=== PATIENT | male | born 1965 | race Caucasian/White ===

== ENCOUNTER → 2018-02-15 | Outpatient (CLI) | payer MEDICARE ==
[~2018-02-15] MED LIST: 'PARAFON FORTE500 M1 PO; AMBIEN10 MG PO; ANTIBIOTIC O500 U/GM TP; ASPIR LOW81 MG PO; AUGMENTIN 875-875 MG PO; BACTRIM DS 8001 TA1 PO; CEPHALEXIN500 M1 PO; CLARITIN10 MG PO; CYCLOBENZAPRINE10 MG PO; DARVOCET N 1001 TAB PO; DAYPRO600 M1 PO; FLONASE ALLERG9.9 ML NAS; HYDROCODONE BIT1 T11 PO; HYDROCODONE BIT1 T20 PO; K-TAB10 MEQ PO; KEFLEX250 MG PO; KEFLEX500 MG PO; LISINOPR; LISINOPRIL2.5 MG PO; LISINOPRIL5 MG PO; METOP; METOPROLOL SUCC50 M1 PO; METOPROLOL TART50 M1 PO; MOTRIN800 MG PO; Motrin,Rufen800 MG PO; NAPROSYN500 MG PO; NORCO 325 MG-51 TAB PO; NORCO 325 MG-7.1 TAB PO; NORCO 5-325 TA1 EACH PO; PARAFON FORTE500 MG PO; PERCOCET 325 MG1 TA2 PO; PREDNISONE10 MG PO; ROBAXIN750 MG PO; ROBITUSSIN AC 110 ML PO; SIMVASTATIN20 MG PO; TOPAMAX200 MG PO; ULTRAM50 MG PO; VALIUM10 MG; VALIUM10 MG PO; VICODIN 5/500 505 MG PO; VICODIN 500 MG-1 TAB; VICODIN 500 MG-1 TAB PO; WELLBUTRIN XL300 MG PO; XANAX1 MG PO; ZANTAC 150150 MG PO; ZOLPIDEM TART12.5 MG PO
== END | disposition home or self-care (01) ==
LOC: RAD 11:07
DX: M16.12 Unilateral primary osteoarthritis, left hip (principal); R23.3 Spontaneous ecchymoses

== ENCOUNTER → 2018-04-02 | Outpatient (CLI) | payer MEDICARE | END | disposition home or self-care (01) | LOC: ORTHO 00:22 | DX: M25.552 Pain in left hip (principal) ==

== ENCOUNTER 2018-06-15 12:18 | Emergency (ER) | payer MEDICARE ==
[~2018-06-15] VITALS: Ht 180.3 cm; Wt 113.4 kg
[2018-06-15] MEDS ORDERED: ZITHROMAX250 MG PO (13:09)
[2018-06-15] MEDS ORDERED: FLONASE ALLERG9.9 ML NAS (13:09)
== END 2018-06-15 14:13 | disposition home or self-care (01) ==
LOC: ED 12:18
DX: H66.92 Otitis media, unspecified, left ear (principal); S69.91XA Unspecified injury of right wrist, hand and finger(s), initial encounter; F17.200 Nicotine dependence, unspecified, uncomplicated; Z79.82 Long term (current) use of aspirin; Z79.899 Other long term (current) drug therapy; Y04.2XXA Assault by strike against or bumped into by another person, initial encounter; Y93.89 Activity, other specified; Y92.89 Other specified places as the place of occurrence of the external cause; Y99.8 Other external cause status

== ENCOUNTER 2018-07-23 10:44 | Emergency (ER) | payer MEDICARE ==
[~2018-07-23] VITALS: Ht 180.3 cm; Wt 113.4 kg
[~2018-07-23 10:44] MED LIST changes: +ZITHROMAX250 MG PO
[2018-07-23] MEDS ORDERED: Tobrex Ophth S2.5 ML OPH (11:02)
[2018-07-23] MEDS ORDERED: ACULAR 0.5%3 ML OPH (11:02)
== END 2018-07-23 12:47 | disposition home or self-care (01) ==
LOC: ED 10:44
DX: S05.02XA Injury of conjunctiva and corneal abrasion without foreign body, left eye, initial encounter (principal); Z79.899 Other long term (current) drug therapy; Z79.82 Long term (current) use of aspirin; W22.8XXA Striking against or struck by other objects, initial encounter; Y93.89 Activity, other specified; Y92.89 Other specified places as the place of occurrence of the external cause; Y99.8 Other external cause status

== ENCOUNTER 2018-08-27 13:25 | Emergency (ER) | payer MEDICARE ==
[~2018-08-27] VITALS: Ht 177.8 cm; Wt 112.5 kg
[~2018-08-27 13:25] MED LIST changes: +ACULAR 0.5%3 ML OPH; +Tobrex Ophth S2.5 ML OPH
[2018-08-27] MEDS ORDERED: ROBAXIN500 M1 PO (15:33)
[2018-08-27] MEDS ORDERED: IBUPROFEN600 MG PO (15:33)
[2018-08-27] MEDS ORDERED: NORCO 5-325 TA1 EACH PO (15:33)
== END 2018-08-27 16:02 | disposition home or self-care (01) ==
LOC: ED 13:25
DX: G89.29 Other chronic pain (principal); M54.2 Cervicalgia; Z79.899 Other long term (current) drug therapy; Z79.82 Long term (current) use of aspirin

== ENCOUNTER → 2019-11-19 | Outpatient (CLI) | payer MEDICARE ==
[~2019-11-19] MED LIST changes: +IBUPROFEN600 MG PO; +ROBAXIN500 M1 PO
[2019-11-19 08:18] LABS: BUN 17 mg/dl (7-24); CHLORIDE 108 mmol/L (98-107); CHOLESTEROL 178 mg/dL (<200); CREATININE 1.05 mg/dL (0.70-1.30); HDL CHOLESTEROL 28 mg/dl (40-60); LDL CHOLESTEROL 125 mg/dL (9-159); POTASSIUM 4.2 mmol/L (3.5-5.1); SODIUM 138 mmol/L (136-145); TRIGLYCERIDES 126 mg/dl (<150); VLDL CHOLESTEROL 25 mg/dL (6-40)
== END | disposition home or self-care (01) ==
LOC: LAB 07:42
PROVIDERS: Registered Nurse Flight
DX: Z13.220 Encounter for screening for lipoid disorders (principal); E78.00 Pure hypercholesterolemia, unspecified; R73.01 Impaired fasting glucose

== ENCOUNTER → 2019-12-14 | Outpatient (CLI) | payer OTHER ==
[~2019-12-14] MED LIST changes: +DULOXETINE HCL30 MG PO; +DULOXETINE HCL60 MG PO; +LISINOPRIL-HCT1 EACH PO; +OMEPRAZOLE MAGN20 MG PO; +TRULICITY1.5 MG/0.5 SC
== END | disposition home or self-care (01) ==
LOC: MRI 11-02 10:00
DX: M25.552 Pain in left hip (principal); M54.5 Low back pain

== ENCOUNTER 2019-12-27 17:40 | Emergency (ER) | payer OTHER ==
[~2019-12-27] VITALS: Ht 180.3 cm; Wt 117.9 kg
[~2019-12-27 17:40] MED LIST changes: -DULOXETINE HCL30 MG PO; -DULOXETINE HCL60 MG PO; -LISINOPRIL-HCT1 EACH PO; -OMEPRAZOLE MAGN20 MG PO; -TRULICITY1.5 MG/0.5 SC
== END 2019-12-27 20:44 | disposition home or self-care (01) ==
LOC: ED 17:40
DX: S60.221A Contusion of right hand, initial encounter (principal); I10 Essential (primary) hypertension; I25.10 Atherosclerotic heart disease of native coronary artery without angina pectoris; M19.90 Unspecified osteoarthritis, unspecified site; G89.29 Other chronic pain; F17.200 Nicotine dependence, unspecified, uncomplicated; Z79.899 Other long term (current) drug therapy; Z79.2 Long term (current) use of antibiotics; Z79.82 Long term (current) use of aspirin; W22.01XA Walked into wall, initial encounter; Y93.89 Activity, other specified; Y92.89 Other specified places as the place of occurrence of the external cause; Y99.8 Other external cause status

== ENCOUNTER 2019-12-29 17:47 | Observation (INO) | payer MEDICARE ==
[~2019-12-29] VITALS: Ht 180.3 cm; Wt 120.8 kg
[2019-12-29 18:14] LABS: BASO # 0.1 10*3/uL (0.0-0.1); BASO % 0.6 % (0.0-1.0); EOS # 0.2 10*3/uL (0.0-0.4); EOS % 1.6 % (1.0-4.0); HEMATOCRIT 47.9 % (42.0-52.0); LYMPH # 2.5 10*3/uL (1.3-4.4); LYMPH % 24.8 % (27.0-41.0); MEAN CELL VOLUME 88.2 fl (80.0-94.0); MEAN CORPUSCULAR HGB 29.5 pg (27.0-31.0); MEAN CORPUSCULAR HGB CONC 33.4 g/dl (33.0-37.0); MEAN PLATELET VOLUME 11.3 fl (9.6-12.3); MONO # 0.8 10*3/uL (0.1-1.0); MONO % 8.1 % (3.0-9.0); NEUT # 6.5 10*3/uL (2.3-7.9); NEUT % 64.7 % (47.0-73.0); PLATELET COUNT AUTOMATED 199 10*3/uL (130-400); RED BLOOD COUNT 5.43 10*6/uL (4.50-5.90); RED CELL DISTRI WIDTH 13.2 % (0-14.5)
[2019-12-29 18:15] VITALS: BP 120/80
[2019-12-29 18:31] LABS: ALBUMIN 4.3 gm/dl (3.1-4.5); ALKALINE PHOSPHATASE 65 U/L (45-117); BUN 14 mg/dl (7-24); CHLORIDE 103 mmol/L (98-107); CREATININE 0.94 mg/dL (0.70-1.30); POTASSIUM 3.3 mmol/L (3.5-5.1); SGOT/AST 22 IU/L (3-35); SGPT/ALT 37 U/L (12-78); SODIUM 136 mmol/L (136-145); TOTAL PROTEIN 7.5 gm/dL (6.4-8.2)
[2019-12-29 18:38] LABS: TROPONIN I < 0.015 ng/ml (<0.045)
[2019-12-29 19:21] LABS: ACT PARTIAL THROMBO TIME 29.1 SECONDS (20.0-32.1)
[2019-12-29 20:48] VITALS: BP 126/82
--- NOTE | 2019-12-29 20:59 | NUR ---
PT RESTING IN BED WITH EYES OPEN. FAMILY AT BEDSIDE
--- NOTE | 2019-12-29 23:10 | NUR ---
A 54, admitted to 4E, under the services of SANTOSH Teixeira DO with a diagnosis of CHEST PAIN. Chief complaint is CHESTPAIN. Patient arrived via wheel chair from ER. Monitor applied. Initial assessment completed. Vital signs taken and recorded. SANTOSH TEIXEIRA DO notified of admission to the unit. Orders received. See assessment for past medical history, medications and allergies. Patient and/or family oriented to unit. visitation policy reviewed. Clothing/patient valuable form completed. JOSE MAC A
--- NOTE | 2019-12-29 23:39 | NUR ---
PRN NORCO GIVEN AT THIS TIME FOR C/O MIDSTERNAL CHEST PAIN RATING A 3/10. CALL LIGHT IS WITHIN REACH, WILL MONITOR EFFECT.
[2019-12-30] VITALS: BP 135/66; BP 136/66
[2019-12-30] MEDS ORDERED: OMEPRAZOLE MAGN20 MG PO (00:32)
[2019-12-30] MEDS ORDERED: TRULICITY1.5 MG/0.5 SC (00:32)
[2019-12-30] MEDS ORDERED: DULOXETINE HCL30 MG PO (00:33)
[2019-12-30] MEDS ORDERED: DULOXETINE HCL60 MG PO (00:33)
[2019-12-30] MEDS ORDERED: LISINOPRIL-HCT1 EACH PO (00:35)
--- NOTE | 2019-12-30 00:44 | NUR ---
DR. MASSEY AWARE PATIENT WISHES TO BE A DNR-CCA. FORM ON CHART AWAITING PHYSICIAN SIGNATURE.
[2019-12-30 08:00] VITALS: BP 122/60
--- NOTE | 2019-12-30 09:00 | NUR ---
Store Receiving Specialist in to talk to patient. Patient states lives at home with family. There are no steps in the home. Physician: sylvester العلي [facility]acy: [facility] Home health services: none Patient's level of ADLs: INDEPENDENT Patient has working utilities: all working DME: none Follow-up physician's appointment after d/c: will be made by hospitalist nurse director upon discharge Does patient want to access PORTAL?: no Discharge plan discussed with patient, he lives at home, is independent in adls and ambulation, he will return home when medically stable and denies any hoem needs. ANGELLA PHILIPPE
--- NOTE | 2019-12-30 10:30 | NUR ---
INFORMED CONSENT OBTAINED FOR LEXISCAN NUCLEAR STRESS TEST WITH DR. HINDS. RESTING EKG NSR WITH A RESTING HR OF 76 WITH BP OF 118/58. LUNGS WITH DIMINISHED BS WITH SPO2 OF 97% ON ROOM AIR. PT COMPLETED A 1:00 LEXISCAN PROTOCOL RECEIVING LEXISCAN 0.4 MG IV OVER 10 SECONDS. HAD NO CHEST PAIN OR ANY EKG CHANGES. DENIED ANY DISCOMFORTS. HAD A PEAK HR OF 122 WITH BP OF 114/52. LAST RECOVERY HR OF 109 WITH BP OF 120/60. AWAITING SCANNING IN STABLE CONDITION.
--- NOTE | 2019-12-30 14:36 | NUR ---
PATIENT LEAVING AMA TO TAKE CARE OF GRANDCHILDREN STATES HE DOESN'T HAVE A CHOICE. DR. MILLAN AND NIB ADJUSTER AWARE.
== END 2019-12-30 14:36 | disposition left against medical advice (07) ==
LOC: ED 17:47 → EDHOLD 21:03 → 4E 21:03
PROVIDERS: Emergency Medicine; ADMIT Internal Medicine
DX: R07.89 Other chest pain (principal); I95.1 Orthostatic hypotension; E87.6 Hypokalemia; R00.0 Tachycardia, unspecified; I25.10 Atherosclerotic heart disease of native coronary artery without angina pectoris; E11.9 Type 2 diabetes mellitus without complications

== ENCOUNTER 2021-07-05 11:20 | Emergency (ER) | payer MEDICARE ==
[~2021-07-05] VITALS: Wt 122.5 kg
[~2021-07-05 11:20] MED LIST changes: +DULOXETINE HCL30 MG PO; +DULOXETINE HCL60 MG PO; +LISINOPRIL-HCT1 EACH PO; +OMEPRAZOLE MAGN20 MG PO; +TRULICITY1.5 MG/0.5 SC
== END 2021-07-05 12:30 | disposition left against medical advice (07) ==
LOC: ED 11:20
DX: M25.512 Pain in left shoulder (principal); M54.2 Cervicalgia; Z53.21 Procedure and treatment not carried out due to patient leaving prior to being seen by health care provider; X50.9XXA Other and unspecified overexertion or strenuous movements or postures, initial encounter; Y93.89 Activity, other specified; Y92.89 Other specified places as the place of occurrence of the external cause; Y99.8 Other external cause status

== ENCOUNTER 2021-11-30 10:36 | Emergency (ER) | payer MEDICARE, OTHER | END 2021-11-30 12:17 | disposition left against medical advice (07) | LOC: ED 10:36 | DX: M25.551 Pain in right hip (principal); Z53.21 Procedure and treatment not carried out due to patient leaving prior to being seen by health care provider ==

== ENCOUNTER → 2022-12-31 | Outpatient (CLI) | payer MEDICARE, OTHER ==
[2022-12-31 09:25] LABS: BASO # 0.1 10*3/uL (0.0-0.1); EOS # 0.2 10*3/uL (0.0-0.4); EOS % 2.1 % (1.0-4.0); HEMATOCRIT 50.6 % (42.0-52.0); LYMPH # 2.4 10*3/uL (1.3-4.4); LYMPH % 28.8 % (27.0-41.0); MEAN CELL VOLUME 91.7 fl (80.0-94.0); MEAN CORPUSCULAR HGB 29.9 pg (27.0-31.0); MEAN CORPUSCULAR HGB CONC 32.6 g/dl (33.0-37.0); MEAN PLATELET VOLUME 11.6 fl (9.6-12.3); MONO # 0.6 10*3/uL (0.1-1.0); NEUT % 60.7 % (47.0-73.0); PLATELET COUNT AUTOMATED 163 10*3/uL (130-400); RED BLOOD COUNT 5.52 10*6/uL (4.50-5.90); RED CELL DISTRI WIDTH 13.6 % (0-14.5); WHITE BLOOD COUNT 8.2 10*3/uL (4.8-10.8)
[2022-12-31 09:40] LABS: ALKALINE PHOSPHATASE 65 U/L (46-116); BUN 11 mg/dl (9-23); CHLORIDE 104 mmol/L (98-107); CHOLESTEROL 152 mg/dL (<200); LDL CHOLESTEROL 87 mg/dL (9-159); POTASSIUM 4.1 mmol/L (3.4-5.1); SGPT/ALT 21 U/L (10-49); TRIGLYCERIDES 190 mg/dl (<150)
== END | disposition home or self-care (01) ==
LOC: LAB 08:34
PROVIDERS: ATTEND Nurse Practitioner Family
DX: E78.5 Hyperlipidemia, unspecified (principal); I10 Essential (primary) hypertension; R73.03 Prediabetes

== ENCOUNTER 2023-07-16 07:50 | Emergency (ER) | payer MEDICARE, MEDICAID ==
[~2023-07-16] VITALS: Ht 177.8 cm; Wt 115.2 kg
[2023-07-16] MEDS ORDERED: AMOXICILLIN875 MG PO (08:42)
== END 2023-07-16 08:44 | disposition home or self-care (01) ==
LOC: ED 07:50
DX: T16.2XXA Foreign body in left ear, initial encounter (principal); I10 Essential (primary) hypertension; I25.10 Atherosclerotic heart disease of native coronary artery without angina pectoris; M19.90 Unspecified osteoarthritis, unspecified site; F32.A Depression, unspecified; I25.2 Old myocardial infarction; Z95.5 Presence of coronary angioplasty implant and graft; Z98.890 Other specified postprocedural states; F17.200 Nicotine dependence, unspecified, uncomplicated

== ENCOUNTER → 2025-04-29 | Outpatient (CLI) | payer MEDICARE, MEDICAID ==
[~2025-04-29] MED LIST changes: +AMOXICILLIN875 MG PO
[2025-04-29 09:05] LABS: BASO # 0.1 10*3/uL (0.0-0.1); EOS # 0.2 10*3/uL (0.0-0.4); EOS % 2.7 % (1.0-4.0); HEMATOCRIT 52.7 % (42.0-52.0); MEAN CELL VOLUME 92.9 fl (80.0-94.0); MEAN CORPUSCULAR HGB 30.2 pg (27.0-31.0); MEAN CORPUSCULAR HGB CONC 32.4 g/dl (33.0-37.0); MEAN PLATELET VOLUME 11.5 fl (9.6-12.3); MONO # 0.7 10*3/uL (0.1-1.0); PLATELET COUNT AUTOMATED 155 10*3/uL (130-400); RED BLOOD COUNT 5.67 10*6/uL (4.50-5.90); RED CELL DISTRI WIDTH 13.4 % (0-14.5); WHITE BLOOD COUNT 8.2 10*3/uL (4.8-10.8)
[2025-04-29 09:19] LABS: ALKALINE PHOSPHATASE 63 U/L (46-116); BUN 13 mg/dl (9-23); CHLORIDE 104 mmol/L (98-107); CHOLESTEROL 179 mg/dL (<200); LDL CHOLESTEROL 90 mg/dL (9-159); POTASSIUM 4.3 mmol/L (3.4-5.1); SGPT/ALT 35 U/L (5-49); TOTAL PROTEIN 6.7 gm/dL (6.0-8.0); TRIGLYCERIDES 298 mg/dl (<150)
== END | disposition home or self-care (01) ==
LOC: LAB 08:18
PROVIDERS: ATTEND Nurse Practitioner Family
DX: I10 Essential (primary) hypertension (principal); E11.9 Type 2 diabetes mellitus without complications; Z12.5 Encounter for screening for malignant neoplasm of prostate; E78.5 Hyperlipidemia, unspecified